=== PATIENT | male | born 1985 | race African-American/Black ===

== ENCOUNTER 2018-11-13 10:36 | Emergency (ER) | payer SELFPAY ==
[~2018-11-13] VITALS: Ht 180.3 cm; Wt 137.0 kg
[2018-11-13] MEDS ORDERED: KETOROLAC 30MG/ML VIAL IM ONE (13:00)
[2018-11-13 13:35] VITALS: BP 146/95
== END 2018-11-13 14:28 | disposition home or self-care (01) ==
LOC: ER 10:47
DX: J02.9 Acute pharyngitis, unspecified (principal); E11.9 Type 2 diabetes mellitus without complications
CPT/HCPCS: 87070; 87430; 96372; 99283; J1885